=== PATIENT | female | born 1950 | race Caucasian/White ===

== ENCOUNTER 2020-08-18 00:02 | Emergency (ER) | payer MEDICARE ==
[~2020-08-18] VITALS: Ht 161.3 cm; Wt 69.1 kg
[2020-08-18 00:09] VITALS: Ht 161.3 cm; Wt 69.1 kg
[2020-08-18] MEDS ORDERED: BAYER CHEWABLE81 MG PO (00:10)
[2020-08-18] MEDS ORDERED: MOBIC7.5 MG PO (00:11)
[2020-08-18] MEDS ORDERED: TRIAMTERENE-HC1 EAC3 PO (00:11)
[2020-08-18] MEDS ORDERED: LIPITOR40 MG PO (00:12)
[2020-08-18] MEDS ORDERED: LOTREL 5/10 MG1 CAP PO (00:12)
[2020-08-18 00:34] LABS: BASOPHILS 0.2 % (0-2); EOSINOPHILS 0.3 % (0-7); HEMATOCRIT 34.2 % (36.0-48.0); IMMATURE GRANULOCYTES 0.2 % (0-5); LYMPHOCYTES 20.4 % (15-50); MCH 25.1 pg (26.0-34.0); MCHC 32.2 g/dL (31.0-37.0); MCV 77.9 fL (80.0-100.0); MEAN PLATELET VOLUME 9.5 fL (7.4-10.4); MONOCYTES 4.3 % (2-11); NEUTROPHILS 74.6 % (40-80); PLATELET COUNT 309 10x3/uL (130-400); RBC 4.39 10x6/uL (4.00-5.40); RDW 15.8 % (11.5-14.5); WBC 9.1 10x3/uL (4.8-10.8)
[2020-08-18 00:40] LABS: CALC OSMOLALITY 277 mosm/kg (275-300); CALCIUM 9.9 mg/dL (8.5-10.1); CARBON DIOXIDE 22.7 mmol/L (21.0-32.0); CHLORIDE - SERUM 103 mmol/L (98-107); CREATININE - SERUM 1.3 mg/dL (0.6-1.3); GLUCOSE 145 mg/dL (74-106); SODIUM 134 mmol/L (136-145); UREA NITROGEN 31 mg/dL (7-18); eGFR NON AFRICAN AMERICAN 43 mL/min (90-120)
[2020-08-18 00:49] LABS: ALBUMIN 3.8 g/dL (3.4-5.0); ALKALINE PHOSPHATASE 87 U/L (30-120); ALT (SGPT) 20 U/L (10-68); AMYLASE - SERUM 90 U/L (25-115); BILIRUBIN - TOTAL 0.39 mg/dL (0.2-1.3); LIPASE 161 U/L (73-393); PROTEIN - SERUM 7.7 g/dL (6.4-8.2)
[2020-08-18 00:50] LABS: TROPONIN-I < 0.017 ng/mL (0.000-0.060)
[2020-08-18 00:54] LABS: BILIRUBIN NEGATIVE (NEGATIVE); KETONE NEGATIVE (NEGATIVE); NITRITE NEGATIVE (NEGATIVE); UROBILINOGEN NORMAL mg/dL (< 2)
[2020-08-18 00:55] LABS: BACTERIA MODERATE HPF (NONE SEEN); EPITHELIAL CELLS 0-5 /hpf (0-5); WHITE CELLS - URINE 0-5 HPF (0-4)
[2020-08-18] MEDS ORDERED: PERCOCET 7.5/321 TAB PO (03:54)
[2020-08-18] MEDS ORDERED: ZOFRAN ODT4 MG/UDTAB PO (03:54)
[2020-08-18 04:11] VITALS: BP 131/59
== END 2020-08-18 04:10 | disposition home or self-care (01) ==
LOC: D.ER 00:02
PROVIDERS: Emergency Medicine
DX: C18.9 Malignant neoplasm of colon, unspecified (principal); C78.7 Secondary malignant neoplasm of liver and intrahepatic bile duct; R11.2 Nausea with vomiting, unspecified; R10.9 Unspecified abdominal pain